=== PATIENT | female | born 1965 | race Caucasian/White ===

== ENCOUNTER 2025-05-01 15:58 | Emergency (ER) | payer MEDICARE, OTHER, SELFPAY ==
[2025-05-01 16:00] VITALS: BP 166/94
--- NOTE | 2025-05-01 16:30 | ED.GENMED ---
History of Present Illness
General
Chief Complaint: Abdominal Pain
Source: patient and records
Exam Limitations: none
Time Seen by Provider: 05/01/25 16:16
History of Present Illness
History of Present Illness:
59yoF with a history of peptic ulcer disease presenting for evaluation of abdominal pain. Patient reports 4 days of epigastric pain. Pain is described as crushing and intermittently feels like a burning pain. Pain comes in waves and goes to the
back at times. She has a history of a perforated duodenal ulcer in 2019 and this feels similar. This was managed conservatively with antibiotics and was thought to be secondary to NSAID use. Patient currently takes 2 tablets of dual action Advil
and Tylenol daily for back pain. Patient denies any fevers, vomiting, diarrhea, chest pain, shortness of breath, hematochezia, melena. She smokes about 5 cigarettes/day and drinks 1 glass of wine with dinner. No prior abdominal surgeries. She
has not seen a PCP in several years.
Past History
Past History
ED Past Medical History: None
ED Past Surgical History: None
Social History
Tobacco: Smoker
Alcohol: Daily
Drug: None
Living: with family
Employment: Employed
Phy Exam
General Physical Exam
General Presentation: well appearing and no apparent distress
General Skin: warm and dry
General Habitus: normal
General Mental: alert
ENT Exam
ENT Exam: normocephalic
Cardiovascular Exam
Cardiovascular Exam: regular rate/rhythm
Pulmonary Exam
Pulmonary Exam: lungs clear, no respiratory distress, no rales, no crackles, no rhonchi and no wheezing
Gastrointestinal Exam
Gastrointestinal Exam: soft, non distended and other (+Epigastric tenderness. Abdomen soft, non-distended. No rebound or guarding.)
Neurological Exam
Neurological Exam: alert
[place] Coma Scale
Eye Opening: Spontaneous
Verbal Response: Oriented
Motor Response: Obeys Commands
GCS Total Score: 15
Skin Exam
Skin Exam: normal color and warm/dry
Psychiatric Exam
Psychiatric Exam: normal mood/affect
Course
Orders/Labs/Results
Orders:
Orders
05/01/25 16:27
0.9% Sodium Chloride 1000 ml [Nss] 1,000 ml IV BOLUS
HYDROmorphone [Dilaudid] 0.5 mg IV NOW STA
Iohexol [Omnipaque] See Protocol PO NOW STA
05/01/25 16:28
CT Abd/pel W Iv And Oral Contr Urgent
Comment:
Reason For Exam: epigastric pain, hx of perforated ulcer
Pantoprazole [Protonix IV] 40 mg IV NOW STA
05/01/25 16:30
Complete Blood Count/With Diff Urgent
Comprehensive Metabolic Panel Urgent
Lipase Urgent
05/01/25 19:21
Famotidine [Pepcid] 20 mg IV NOW STA
Sucralfate Suspension [Carafate Suspension] 1 gm PO NOW STA
05/01/25 19:22
Viscous Lidocaine 2% [Xylocaine Viscous Cup] 15 ml PO ONCE ONE
Abnormal Lab Results
05/01/25
16:30
Absolute Neuts (auto) 6.7 H 10^3/uL
(1.4-6.5)
Absolute Monos (auto) 0.8 H 10^3/uL
(0.1-0.6)
Glucose 101 H mg/dl
(70-99)
05/01/25 16:30
05/01/25 16:30
Vital Signs
Initial and Last Documented VS:
Initial Vital Signs
Temp Pulse Resp BP Pulse Ox
98.4 F 96 20 166/94 98
05/01/25 16:00 05/01/25 16:00 05/01/25 16:00 05/01/25 16:00 05/01/25 16:00
Last Documented Vital Signs
Temp Pulse Resp BP Pulse Ox
97.3 F 68 16 131/75 94
05/01/25 20:44 05/01/25 20:44 05/01/25 18:03 05/01/25 20:44 05/01/25 20:44
MDM/Problems Addressed
Differential Diagnosis Includes:
59yoF here with epigastric pain x 4 days. Hx of perforated duodenal ulcer and this feels similar. She is hypertensive in triage with otherwise stable vitals. Patient non-toxic appearing. No signs of peritonitis on abdominal exam. Differential
diagnosis includes: gastritis, PUD, pancreatitis, biliary colic, cholecystitis
Initial ED plan: Check abdominal labs and CT abdomen with IV/PO contrast. IV Dilaudid, Protonix, and fluid bolus for symptoms.
*Pulse Oximetry
SaO2: 98
Oxygen Mode of Delivery: Room air
Patient hypoxic: no
*Critical Care Note
Total Time (30-74mins, 75-104mins- exclusive of procedures): Not Applicable
Update Note
Update Note:
Labs unremarkable including normal white count, LFTs, lipase. CT shows relative wall thickening of the distal stomach which may be inflammatory. Gastric ulcer cannot be excluded. No other acute findings on imaging. No indication for
hospitalization. She was started on Protonix 40 mg twice daily and was also given a prescription for Carafate. Patient advised to follow-up with GI and discussed need for outpatient endoscopy. ED return precautions reviewed and she was discharged
in stable condition.
ED Attending Note
-
Portions of this chart may have been created with voice recognition software.� Occasional wrong word or��sound alike� substitutions may have occurred due to the inherent limitations of voice recognition software.
Discharge Plan
Departure
Patient Disposition: Home (Routine Discharge)
Date of Disposition: 05/01/25
Time of Disposition: 20:07
Patient with high blood pressure during this ER visit?: No
Discharge Problem:
Gastritis
Instructions: Gastritis (DC)
Prescriptions:
New
pantoprazole [Protonix] 40 mg tablet,delayed release (DR/EC)
40 mg PO BID 30 Days Qty: 60 0RF
sucralfate 100 mg/mL suspension
1 g PO ACHS Qty: 400 0RF
No Action
amitriptyline 10 MG tablet
10 mg PO HS
pantoprazole 40 MG tablet,delayed release (DR/EC)
40 mg PO BID 30 Days Qty: 60 0RF
Referrals:
VALE CALDERÓN CRNP [Family Provider, Pediatric Medicine]
Herman Ambriz DO [Active, Gastroenterology]
Activity Restrictions/Additional Instructions:
Take Protonix and Carafate as prescribed. You may also use Pepcid 20mg twice a day as needed.
Please call on Saturday to schedule a follow-up appointment with your family doctor and gastroenterology.
Return to the ER with any new or worsening symptoms including severe pain or fevers.
Interventions
Interventions:
*Risk Screen - Suicide Last Done: 05/01/25 16:21
*General Assessment Last Done: 05/01/25 16:39
*Neglect/Abuse Screening Last Done: 05/01/25 16:21
*ED- Fall Risk Assessment Last Done: 05/01/25 16:21
*ED COVID-19 Vaccine History Last Done: 05/01/25 16:21
*ED Influenza Vaccine History Last Done: 05/01/25 16:21
*Nursing Disposition Last Done: 05/01/25 20:45
FA-Fqnahr-Ynjcgvmban Assessment Last Done: 05/01/25 19:34
Discharge Date and Time
Discharge Date/Time: 05/01/25 20:46
Print Language: [id number]
[2025-05-01] MEDS: DILAUDID 0.5 MG IV (16:35)
[2025-05-01] MEDS: NSS 1000 IV (16:35)
[2025-05-01] MEDS: OMNIPAQUE 50 ML PO (16:35)
[2025-05-01] MEDS: PROTONIX IV 40 MG IV (16:35)
[2025-05-01 16:37] LABS: Hematocrit 43.0 % (37.0-47.0); Hemoglobin 15.2 g/dL (12.0-16.0); Mean Corp Hgb Conc. 35.3 g/dL (33.0-37.0); Mean Corpuscular Volume 86.7 fL (81.0-99.0); Nucleated Red Blood Cells % 0 %; Platelet Count 357 10^3/uL (130-400); Red Cell Dist. Width 11.7 % (11.5-14.5)
[2025-05-01 16:54] LABS: ALT (SGPT) 26 U/L (0-35); AST (SGOT) 22 U/L (14-36); Albumin 4.4 g/dl (3.5-5.0); Alkaline Phosphatase 86 U/L (38-126); Blood Urea Nitrogen 14 mg/dl (7-17); Calcium 9.9 mg/dl (8.4-10.2); Carbon Dioxide 28 mmol/L (22-30); Chloride 102 mmol/L (98-107); Glucose 101 mg/dl (70-99); Lipase 24 U/L (23-300); Potassium 4.2 mmol/L (3.5-5.1); Sodium 135 mmol/L (135-145); Total Protein 7.0 g/dl (6.3-8.2); eGFR > 60.00
[2025-05-01 18:03] VITALS: BP 139/75
[2025-05-01 19:18] VITALS: BP 116/79
[2025-05-01] MEDS: PEPCID 20 MG IV (19:27)
[2025-05-01] MEDS: CARAFATE SUSPENSION 1 GM PO (19:27)
[2025-05-01] MEDS: XYLOCAINE VISCOUS CUP 15 ML PO (19:27)
[2025-05-01 20:44] VITALS: BP 131/75
== END 2025-05-01 20:46 | disposition home or self-care (01) ==
LOC: EMR 15:58
PROVIDERS: Physician Assistant; EMERGENCY PHYSICIAN Emergency Medicine; FAMILY PHYSICIAN Nurse Practitioner Primary Care
DX: K29.70 Gastritis, unspecified, without bleeding (principal); F17.210 Nicotine dependence, cigarettes, uncomplicated; Z87.11 Personal history of peptic ulcer disease
CPT/HCPCS: 99284; 96374; 96375 ×2; 96361; 74177; 80053; 83690; 85025; Q9967